=== PATIENT | male | born 1995 | race Caucasian/White ===

== ENCOUNTER 2018-05-06 00:26 | Emergency (ER) | payer SELFPAY ==
[~2018-05-06] VITALS: Ht 172.7 cm; Wt 104.7 kg
[2018-05-06 00:32] VITALS: TEMP 98.5
[2018-05-06 02:30] VITALS: BP 132/82; PULSE 70
== END 2018-05-06 02:35 | disposition home or self-care (01) ==
LOC: COL.ER 00:26
DX: R51 Headache (principal)
CPT/HCPCS: J1200; J2765; J7030

== ENCOUNTER 2019-04-06 01:23 | Emergency (ER) | payer SELFPAY ==
[~2019-04-06] VITALS: Ht 175.3 cm; Wt 102.3 kg
[2019-04-06 01:32] VITALS: TEMP 99
[2019-04-06 02:03] LABS: BASO % 0.2 % (0.0-2.0); EOS # 0.2 (0.0-0.7); EOS % 1.4 % (0-4.0); GRAN # 8.8 (1.4-6.5); GRAN % 72.8 % (42.2-75.2); HEMATOCRIT 47.5 % (42.0-52.0); HEMOGLOBIN 16.1 g/dl (13.5-18.0); LYMPH # 2.3 (1.2-3.4); LYMPH % 18.8 % (20.0-51.0); MEAN CELL VOLUME 83 fl (80.0-100.0); MEAN CORPUSCULAR HEMOGLOBIN 28 pg (27.0-31.0); MEAN CORPUSCULAR HGB CONC 34 g/dl (33.0-37.0); MEAN PLATELET VOLUME 9.8 fl (7.4-10.4); MONO # 0.8 (0.1-0.6); MONO % 6.6 % (1.7-9.3); PLATELET COUNT 260 K/mm3 (130-400); RED BLOOD COUNT 5.74 M/mm3 (4.20-5.60); REDCELL DISTRIBUTION WIDTH-CV 14.7 % (11.5-14.5)
[2019-04-06 02:12] LABS: ALBUMIN 4.4 gm/dL (3.5-5.0); BILIRUBIN,TOTAL 0.7 mg/dL (0.0-1.0); CALCIUM 9.1 mg/dL (8.4-10.2); CREATININE, serum 0.88 (0.66-1.25); POTASSIUM 3.9 mmol/L (3.4-5.0)
[2019-04-06] MEDS ORDERED: ZITHROMAX 250M250 MG PO (02:47)
[2019-04-06] MEDS ORDERED: DECADRON 4MG TAB4 MG PO (02:53)
[2019-04-06 02:57] VITALS: BP 137/97; PULSE 81
== END 2019-04-06 02:57 | disposition home or self-care (01) ==
LOC: COL.ER 01:23
PROVIDERS: Emergency Medicine
DX: J20.9 Acute bronchitis, unspecified (principal); J06.9 Acute upper respiratory infection, unspecified; R07.89 Other chest pain
CPT/HCPCS: J8540

== ENCOUNTER 2021-08-28 00:38 | Emergency (ER) | payer SELFPAY ==
[~2021-08-28 00:38] MED LIST: DECADRON 4MG TAB4 MG PO; ZITHROMAX 250M250 MG PO
[2021-08-28 01:54] VITALS: TEMP 98.4
[2021-08-28 02:26] LABS: STREP SCREEN NEGATIVE
[2021-08-28 02:39] VITALS: BP 130/86; PULSE 62
== END 2021-08-28 02:39 | disposition home or self-care (01) ==
LOC: COL.ER 00:38
PROVIDERS: Emergency Medicine
DX: J02.9 Acute pharyngitis, unspecified (principal)